=== PATIENT | female | born 1950 ===

== ENCOUNTER → 2021-03-13 | Outpatient (CLI) | payer MEDICARE, BC | END | disposition home or self-care (01) | LOC: LAB SHORT 09:53 | DX: L82.1 Other seborrheic keratosis (principal) | CPT/HCPCS: 88305 ==

== ENCOUNTER 2023-10-06 14:17 | Day surgery (SDC) | payer MEDICARE, BC ==
[~2023-10-06] VITALS: Ht 167.6 cm; Wt 68.7 kg
[2023-10-06] MEDS ORDERED: EFUDEX40 GM TOP (14:41)
[2023-10-06] MEDS ORDERED: LEVOTHYROXINE112 M18 PO (14:41)
[2023-10-06] MEDS ORDERED: TRAZ50 PO (14:42)
--- NOTE | 2023-10-06 15:59 | NUR ---
10/06/23 1559 Isela Jenkins FLUID DEFICIT OF 100MLS. DR STEWART NOTIFIED.
--- NOTE | 2023-10-06 16:55 | NUR ---
10/06/23 4736 MELCHOR WEI PT AT BEDSIDE. PT EATING AND DRINKING W/O DIFF. PT WAS GIVEN 1,000MG OF TYLENOL WITH BRY NORRIS PER DR. STEWART ORDERS. PT ALSO HAS AN ORDER FOR OXYCODONE 5MG PO. PT AGREED THAT SHE DID WANT THIS MEDICATION PRIOR TO DC SHE STATES HER CRAMPING IS 6/10. BRY MERIDA IS GOING OVER DC INSTRUCTIONS WITH PT AT BEDSIDE.
[2023-10-06 16:57] VITALS: BP 166/87
== END 2023-10-06 17:15 | disposition home or self-care (01) ==
LOC: ORSCSDS 14:17
PROVIDERS: Obstetrics & Gynecology
PROC: 0UDB8ZX Extraction of Endometrium, Via Natural or Artificial Opening Endoscopic, Diagnostic (ICD-10-PCS; principal; 2023-10-06 14:45)
DX: N95.0 Postmenopausal bleeding (principal); N84.0 Polyp of corpus uteri; N88.2 Stricture and stenosis of cervix uteri; R93.89 Abnormal findings on diagnostic imaging of other specified body structures; E03.9 Hypothyroidism, unspecified; Z79.899 Other long term (current) drug therapy; Z85.3 Personal history of malignant neoplasm of breast
CPT/HCPCS: 88305; A9270; J1100; J1885; J2405; J2704

== ENCOUNTER 2025-10-22 09:25 | Emergency (ER) | payer MEDICARE, BC ==
[~2025-10-22] VITALS: Ht 167.6 cm; Wt 68.0 kg
[~2025-10-22 09:25] MED LIST: EFUDEX40 GM TOP; LEVOTHYROXINE112 M18 PO; TRAZ50 PO
[2025-10-22] MEDS ORDERED: HORMONE CREAM (09:52)
[2025-10-22 10:41] LABS: BASOPHILS ABSOLUTE AUTO 0.05 K/mm3 (0.00-0.23); BASOPHILS PERCENT AUTO 1 % (0-2); EOSINOPHILS ABSOLUTE AUTO 0.25 K/mm3 (0.00-0.68); EOSINOPHILS PERCENT AUTO 4 % (0-6); Hematocrit 36.3 % (33.0-51.0); Hemoglobin 11.9 g/dL (11.5-16.0); IMMATURE GRAN ABSOLUTE AUTO 0.03 K/mm3 (0.00-0.10); IMMATURE GRAN PERCENT AUTO 0 % (0-1); LYMPHOCYTES ABSOLUTE AUTO 1.56 K/mm3 (0.84-5.20); LYMPHOCYTES PERCENT AUTO 22 % (21-46); MONOCYTES ABSOLUTE AUTO 0.49 K/mm3 (0.16-1.47); MONOCYTES PERCENT AUTO 7 % (4-13); Mean Corpuscular HGB Conc 32.8 g/dL (31.5-36.5); Mean Corpuscular Volume 88 fL (80-100); NEUTROPHILS ABSOLUTE AUTO 4.64 K/mm3 (1.96-9.15); NEUTROPHILS PERCENT AUTO 66 % (41-73); NRBC ABSOLUTE 0.00 K/mm3 (0.00-0.02); NRBC Auto 0.0 /100 WBC (0.0-0.2); Platelet Count 206 K/mm3 (150-400); RDW Coefficient Variation 13.6 % (11.7-14.2); RDW Standard Deviation 43.9 fL (35.1-46.3)
[2025-10-22 10:52] LABS: Alanine Aminotransfer (ALT/SGP 30.0 U/L (12-78); Albumin, Blood 3.5 g/dL (3.4-5.0); Albumin/Globulin Ratio 1.2 (0.8-1.8); Anion Gap 7.0 mmol/L (3-11); Aspartate Aminotrans (AST/SGOT 22.0 U/L (12-37); Bilirubin, Total 0.2 mg/dL (0.1-1.0); Blood Urea Nitrogen 18.0 mg/dL (8-24); CO2, Blood 26.0 mmol/L (21-32); Calcium, Blood 9.6 mg/dL (8.5-10.1); Chloride, Blood 114.0 mmol/L (98-108); Creatinine, Blood 0.62 mg/dL (0.40-1.00); Globulin, Blood 3.0 g/dL (2.2-4.0); Glucose, Blood 126.0 mg/dL (70-99); Potassium, Blood 3.5 mmol/L (3.5-5.5); Sodium, Blood 143.0 mmol/L (136-145); Total Protein, Blood 6.5 g/dL (6.4-8.2)
[2025-10-22 13:07] VITALS: BP 147/66
[2025-10-22] MEDS ORDERED: MECL25 PO (13:07)
== END 2025-10-22 13:19 | disposition home or self-care (01) ==
LOC: ER 09:25
PROVIDERS: Student in an Organized Health Care Education/Training Program
DX: R42 Dizziness and giddiness (principal); E03.9 Hypothyroidism, unspecified; Z79.890 Hormone replacement therapy; Z79.899 Other long term (current) drug therapy
CPT/HCPCS: 80053; 85025; 93005; 93010; 99284-25; A9270